=== PATIENT | male | born 1970 | race Two or more races ===

== ENCOUNTER 2024-04-06 05:29 | Day surgery (SDC) | payer OTHER ==
[2024-03-30 08:58] LABS: URINE APPEARANCE Clear; URINE BILIRRUBIN Negative (NEGATIVE); URINE BLOOD Negative; URINE COLOR Yellow; URINE GLUCOSE Negative (NEGATIVE); URINE KETONE Negative (NEGATIVE); URINE LEUKOCYTE Negative; URINE NITRATE Negative; URINE PROTEIN Trace (NEGATIVE); URINE UROBILINOGEN 0.2 E.U./dl
[2024-03-30 09:02] LABS: URINE BACTERIA 6.2 uL (0.0-1933); URINE RBC 4.2 uL (0.0-20.8); URINE WBC 2.7 uL (0.0-23.2)
[2024-03-30 09:03] LABS: HEMOGLOBIN 15.2 g/dL (13-16.00); MEAN CELL VOLUME 86.7 fL (80.0-100.00); MEAN CORPUSCULAR HEMOGLOBIN 29.3 pg (27.00-32.0); MEAN CORPUSCULAR HGB CONC 33.8 g/dl (32.0-36.0); PLATELET COUNT 297 K/uL (150-450); RED BLOOD COUNT 5.19 M/uL (4.00-6.00); RED CELL DISTRIBUTION WIDTH 12.9 % (11.5-14.5)
[2024-03-30 09:07] LABS: URINE EPITHELIAL CELLS 0.7 uL (0.0-38.8)
[2024-03-30 09:27] LABS: INR 0.99; PARTIAL THROMBOPLASTIN TIME 26.5 SECONDS (22.0-34.0); PROTHROMBIN TIME 10.4 SECONDS (9.0-11.5)
[2024-03-30 10:01] LABS: ALBUMIN 4.4 gm/dL (3.4-5.0); CALCIUM 9.5 mg/dL (8.5-10.1); CREATININE SERUM 1.01 mg/dL (0.70-1.30); GFR 77.88; PHOSPHOROUS 2.8 mg/dL (2.5-4.9); POTASSIUM 4.14 mEq/L (3.5-5.1)
[2024-04-06] MEDS ORDERED: CEFAZOLIN SODIUM 1,000 MG VIAL ONE (05:54)
[2024-04-06] MEDS ORDERED: EPINEPHRINE HCL/PF 1 MG/ML AMPUL ONE (07:04)
[2024-04-06] MEDS ORDERED: POVIDONE-IODINE 118 ML BOTT TOP ONE ×2 (07:04→08:30)
[2024-04-06] MEDS ORDERED: LIDOCAINE HCL 1%/EPINEPHRINE 20ML VIAL IJ ONE ×2 (07:05→08:30)
[2024-04-06] MEDS ORDERED: DEXAMETHASONE SODIUM PHOSPHATE 4 MG/ML VIAL ONE (07:05)
[2024-04-06] MEDS ORDERED: CIPROFLOXACIN HCL 0.175 MG/DR DROPS OTIC ONE (08:30)
[2024-04-06] MEDS ORDERED: CEFAZOLIN SODIUM 1,000 MG VIAL IV SCH (08:30)
[2024-04-06] MEDS ORDERED: NEOMYCIN/BACITRACIN/POLYMYXINB 14 G TUBE TOP ONE (08:30)
[2024-04-06] MEDS ORDERED: EPINEPHRINE HCL/PF 1 MG/ML AMPUL IR ONE (08:30)
[2024-04-06] MEDS ORDERED: DEXAMETHASONE 4 MG TABLET PO ONE (08:45)
[2024-04-06] MEDS ORDERED: CIPROFLOXACIN2.5 ML OTIC (08:54)
[2024-04-06] MEDS ORDERED: CEPHALEXIN500 MG PO (08:54)
== END 2024-04-06 11:25 | disposition home or self-care (01) ==
LOC: CIR.AMB 05:29
PROVIDERS: ATTEND Otolaryngology Otology & Neurotology
DX: H80.81 Other otosclerosis, right ear (principal); H90.A11 Conductive hearing loss, unilateral, right ear with restricted hearing on the contralateral side

== ENCOUNTER 2025-05-12 07:45 | Emergency (ER) | payer OTHER ==
[~2025-05-12] VITALS: Ht 177.8 cm; Wt 90.7 kg
[~2025-05-12 07:45] MED LIST: CEPHALEXIN500 MG PO; CIPROFLOXACIN2.5 ML OTIC
[2025-05-12] MEDS ORDERED: GUAIFENESIN/DEXTROMETHORPHAN 100MG/10ML BLIST.PACK PO ONE (08:42)
[2025-05-12] MEDS ORDERED: METHYLPREDNISOLONE SOD SUCC 125 MG VIAL ONE (08:42)
[2025-05-12] MEDS ORDERED: METHYLPREDNISOLONE SOD SUCC 125 MG VIAL IM ONE (08:45)
[2025-05-12] MEDS ORDERED: GUAIFENESIN 200 MG/10 ML BLIST.PACK PO ONE (08:45)
[2025-05-12 08:57] LABS: BASO % 1.1 % (0.1-1.2); EOS # 0.86 (0.04-0.54); EOS % 6.9 % (0.7-7.0); LYMPH # 2.21 (1.18-3.74); LYMPH % 17.8 % (19.3-53.1); MEAN PLATELET VOLUME 10.60 fl (9.4-12.4); MONO # 0.83 (0.24-0.82); MONO % 6.7 % (4.7-12.5); NEUT # 8.36 (1.56-6.13); NEUT % 67.3 % (34.0-71.1); RED CELL DISTRIBUTION WIDTH 12.1 % (11.6-14.4)
== END 2025-05-12 09:27 | disposition home or self-care (01) ==
LOC: ER 07:45
PROVIDERS: General Practice
DX: B34.9 Viral infection, unspecified (principal); J04.0 Acute laryngitis